=== PATIENT | male | born 1980 | race Caucasian/White ===

== ENCOUNTER → 2021-08-10 12:10 | Outpatient (CLI) | payer OTHER, SELFPAY ==
--- NOTE | 2021-08-10 | DI.RAD.S_ITS ---
PROCEDURE: XR WRIST RT MIN 3V INDICATIONS: PAIN IN RIGHT WRIST TECHNIQUE: 4 views of the wrist were acquired. COMPARISON: None. FINDINGS: Bones: No acute fracture or remote traumatic process of the 5th metacarpal. Alignment is normal. Scaphoid view: No fracture. Soft tissues: No suspicious soft tissue calcifications. IMPRESSION: Remote posttraumatic changes of the 5th metacarpal. No acute osseous abnormality. Dictated by: Cortez Valladares D.O. on 08/10/2021 at 11:56 Approved by: Cortez Valladares D.O. on 08/10/2021 at 11:57
== END ==
PROVIDERS: PCP Family Medicine; Referring Provider Family Medicine; Visit Provider Family Medicine
DX: M25.531 Pain in right wrist (principal)
CPT/HCPCS: 73110

== ENCOUNTER → 2021-11-11 12:34 | Outpatient (CLI) | payer OTHER, SELFPAY ==
--- NOTE | 2021-11-11 | DI.RAD.S_ITS ---
PROCEDURE: XR FOOT LT MIN 3V INDICATIONS: Gout, unspecified TECHNIQUE: 3 views of the foot were acquired. COMPARISON: None. FINDINGS: Bones: No fractures or dislocations. Bipartite medial hallux sesamoid. No suspicious bony lesions. No erosive changes. An os cuboid is seen. Soft tissues: No tibiotalar joint effusion. Achilles tendon appears normal. No soft tissue tophus. IMPRESSION: Joints are well maintained and no inflammatory arthritic changes. Dictated by: Hema Zafar Avinash Interpreted: Jake Keen MD on 11/11/2021 at 13:17 Transcribed by: ADRIAN on 11/11/2021 at 13:18 Approved by: Jake Keen M.D. on 11/11/2021 at 17:28
== END ==
PROVIDERS: PCP Family Medicine; Referring Provider Family Medicine; Visit Provider Family Medicine
DX: M10.9 Gout, unspecified (principal)
CPT/HCPCS: 73630